=== PATIENT | male | born 1980 | race Two or more races ===

== ENCOUNTER 2018-11-11 06:58 | Inpatient (IN) | payer OTHER ==
[~2018-11-11] VITALS: Ht 170.2 cm; Wt 70.8 kg
[2018-11-11] MEDS ORDERED: LORAZEPAM INJ 2 MG/ML VIAL ONE ×3 (07:05→10:19)
[2018-11-11] MEDS ORDERED: LEVETIRACETAM (500MG) 500 MG/5 ML VIAL IV ONE (07:15)
--- NOTE | 2018-11-11 07:24 | NUR ---
BIBA FOR S/P SEZURE . UNSURE IF HE HIT HIS HEAD SOMEWHERE. PLACED ON A MONITOR ,VSS. RAC 20G IV LINE INSERTED AND BLOOD WAS DRAWN AND SENT TO THE LAB. MEDICATED ORDERED. WILL CONT TO MONITO .
[2018-11-11 07:26] LABS: BASOPHILS # (AUTO) 0.1 /CMM (0.0-0.2); BASOPHILS % (AUTO) 0.5 % (0.0-2.0); EOSINOPHILS % (AUTO) 0.7 % (0.0-6.0); HEMATOCRIT 47 % (39-51); HEMOGLOBIN 15.5 g/dL (13.5-17.5); LYMPHOCYTES # (AUTO) 2.8 /CMM (0.8-4.8); LYMPHOCYTES % (AUTO) 23.5 % (20.0-44.0); MEAN CORPUSCULAR HGB CONC 33 g/dl (31.0-36.0); MEAN CORPUSCULAR VOLUME 83 fL (80-96); MONOCYTES # (AUTO) 0.7 /CMM (0.1-1.30); MONOCYTES % (AUTO) 5.7 % (2.0-12.0); NEUTROPHILS # (AUTO) 8.4 /CMM (1.8-8.9); NEUTROPHILS % (AUTO) 69.6 % (43.0-81.0); PLATELET COUNT (AUTO) 230 /CMM (150-450); RED BLOOD CELL COUNT(AUTO) 5.67 MIL/uL (4.5-6.0)
[2018-11-11] MEDS ORDERED: IV NS 0.9% 1,000 ML BAG IV ONE ×2 (07:30→10:30)
[2018-11-11] MEDS ORDERED: LORAZEPAM INJ 2 MG/ML VIAL IVP ONE (07:30)
[2018-11-11] MEDS ORDERED: LEVETIRACETAM (500MG) 500 MG in IV NS 0.9% 100 ML IV ONE (07:30)
--- NOTE | 2018-11-11 07:35 | NUR ---
PT TO CT
[2018-11-11 07:36] LABS: CALCIUM, SERUM 9.4 mg/dL (8.5-10.1); CREATININE 0.9 mg/dL (0.6-1.3); POTASSIUM 3.8 mmol/L (3.5-5.1)
[2018-11-11 07:43] LABS: ALBUMIN 4.1 g/dL (3.4-5.0); BILIRUBIN,DIRECT 0.1 mg/dL (0.0-0.2); BILIRUBIN,TOTAL 0.7 mg/dL (0.2-1.0); TOTAL PROTEIN, SERUM 8.6 g/dL (6.4-8.2)
--- NOTE | 2018-11-11 07:52 | NUR ---
PT BACK FRO MCT
[2018-11-11] MEDS ORDERED: ONDANSETRON HCL/PF 4 MG/2 ML VIAL ONE (08:51)
--- NOTE | 2018-11-11 08:56 | NUR ---
PT APPEARS ANXIOUS, C/O NAUSEA. DR WILL AWARE. MEDICATED ORDERED.
[2018-11-11] MEDS ORDERED: ONDANSETRON HCL/PF - ER 4 MG/2 ML VIAL IV ONE (09:00)
[2018-11-11] MEDS ORDERED: LORAZEPAM INJ 2 MG/ML VIAL IV ONE ×2 (09:00→10:30)
--- NOTE | 2018-11-11 10:33 | NUR ---
PANEL PAGED. AWAITING CALL BACK FROM Jaylen PRIETO NP.
[2018-11-11] MEDS ORDERED: LEVE250T2 PO (10:44)
--- NOTE | 2018-11-11 10:58 | NUR ---
REPORT GIVEN TO SAJI SOMMERS. AWAITING TRANSFER.
[2018-11-11] MEDS ORDERED: MAGNESIUM HYDROXIDE 30 ML UDC PO PRN (11:30)
[2018-11-11] MEDS ORDERED: LORAZEPAM INJ 2 MG/ML VIAL IV PRN (11:30)
[2018-11-11] MEDS ORDERED: ZOLPIDEM TARTRATE 5 MG TABLET PO PRN (11:30)
[2018-11-11] MEDS ORDERED: ACETAMINOPHEN 325 MG TABLET PO PRN (11:30)
[2018-11-11] MEDS ORDERED: MAG HYDROX/AL HYDROX/SIMETH 30 ML UDC PO PRN (11:30)
--- NOTE | 2018-11-11 11:35 | NUR ---
ROLLER OPERATOR ADMITTING NOTE RECEIVED PATIENT FROM [facility] ER. REPORT RECEIVED FROM MATTHIEU YING. PATIENTA/O X 4, NO SOB OR ACUTE DISTRESS NOTED, ON 2L 02 VIA MS. HX OF SIEZURE AND EPILEPSY. PATIENT AMBULATORY, SKIN INTACT. SIEZURE PRECAUTIONS IN PLACE, BED SIDE RAILS PADDED. SUCTION CANISTER PREPARED. RFA IV INTACT AND PATENT. O.9 % NS INFUSING @ 75 ML/HR. PATIENT RESTING COMFORTABLY. SAFETY MEASURES IN PLACE. BED IN LOW LOCKED POSITION, CALL LIGHT WITHIN REACH.
[2018-11-11] MEDS: MULTIVITAMINS,THERAGRAN 1 UDTAB TABLET PO SCH (12:10)
[2018-11-11] MEDS: FOLIC ACID 1 MG TABLET PO SCH (12:10)
[2018-11-11] MEDS: THIAMINE HCL 100 MG TABLET PO SCH (12:10)
[2018-11-11] MEDS: ONDANSETRON HCL/PF 4 MG/2 ML VIAL IVP PRN ×2 (15:46→22:44)
[2018-11-11] MEDS: CHLORDIAZEPOXIDE HCL 25 MG CAPSULE PO SCH (18:09)
[2018-11-11] MEDS: PANTOPRAZOLE 40 MG TABLET.DR PO SCH (18:09)
[2018-11-11] MEDS: LEVETIRACETAM (250 MG) 250 MG TABLET PO SCH (18:09)
--- NOTE | 2018-11-11 19:25 | NUR ---
ANTHONY RN OPENING NOTES RECEIVED BEDSIDE REPORT FROM MATTHIEU HENSON. PATIENT IN BED, A/OX3, ABLE TO MAKE NEEDS KNOWN. NO SEIZURE ACTIVITY NOTED. ON OXYGEN 2L VIA NC, TOLERATING WELL, SATURATION 97%. RESPIRATION EVEN AND UNLABORED. IV ACCESS ON RIGHT FA 20G, INTACT AND PATENT, FLUSHING WELL, FLUIDS RUNNING ORDERED, NO INFILTRATION NOTED. HOB ELEVATED. SAFETY MEASURES IN PLACE. SIDE RAILS UP X2 AND PADDED. BED LOCKED AND IN LOWEST POSITION. CALL LIGHT WITHIN REACH. WILL CONT TO MONITOR CLOSELY.
[2018-11-11 20:00] VITALS: BP 137/76
--- NOTE | 2018-11-11 20:09 | NUR ---
SHOULDER BONER CLOSING NOTE PATIENT IN BED RESTING. A/O X 4, NO SOB OR ACUTE DISTRESS NOTED, ON ROOM AIR WITH ORDER FOR 2L 02 VIA NC IF 02 SAT <92%. CURRENT 02 SAT 99%. PATIENT AMBULATORY, SKIN INTACT. SIEZURE PRECAUTIONS IN PLACE, BED SIDE RAILS PADDED. SUCTION CANISTER PREPARED. RFA IV INTACT AND PATENT. O.9 % NS INFUSING @ 75 ML/HR. SAFETY MEASURES IN PLACE. BED IN LOW LOCKED POSITION, CALL LIGHT WITHIN REACH.CARE ENDORSED TO MINE CAPTAIN RN.
[2018-11-12] VITALS: BP 110/83
[2018-11-12 01:21] LABS: APPEARANCE,URINE CLOUDY (CLEAR); BILIRUBIN,URINE NEGATIVE (NEGATIVE); BLOOD, URINE 2+ Ery/uL (NEGATIVE); COLOR,URINE YELLOW (YELLOW); KETONES,URINE NEGATIVE (NEGATIVE); LEUKOCYTE ESTERASE ,URINE 1+ (NEGATIVE); NITRITE, URINE NEGATIVE (NEGATIVE); PH,URINE 8.5 (5.0-8.0); PROTEIN,URINE 2+ mg/dl (NEGATIVE); UGLUCOSE NEGATIVE (NEGATIVE); UROBILINOGEN,URINE 0.2 EU/dL (0.2)
[2018-11-12] MEDS: IV NS 0.9% 1,000 ML IV PRN ×2 (02:56→17:21)
--- NOTE | 2018-11-12 03:00 | NUR ---
ANTHONY RN NOTES PATIENT COMPLAINING OF NEEDING TO URINATE BUT HAVING DIFFICULTY D/T BURNING PAIN 8/10 WHILE URINATING. WILL CHECK WITH BLADDER SCANNER IF PATIENT RETAINING FLUIDS. WILL CONT TO MONITOR CLOSELY.
[2018-11-12 03:30] LABS: BACTERIA,URINE Few /HPF (None Seen); RBC,URINE 21-50 /HPF (0-2); SQUAMOUS EPITHELIAL CELL,UR Rare /HPF (None Seen); WBC,URINE TOO NUMEROUS TO COUN /HPF (0-3)
[2018-11-12 04:00] VITALS: BP 110/82
--- NOTE | 2018-11-12 04:00 | NUR ---
ANTHONY RN NOTES PATIENT REFUSING BLADDER SCAN RIGHT NOW. STATED "I PEED A LITTLE ALREADY, PLEASE DO IT LATER" WILL ENDORSE TO AM RN.
[2018-11-12 06:12] LABS: ALBUMIN 3.4 g/dL (3.4-5.0); BILIRUBIN,TOTAL 1.4 mg/dL (0.2-1.0); CALCIUM, SERUM 8.8 mg/dL (8.5-10.1); CREATININE 0.7 mg/dL (0.6-1.3); MAGNESIUM 1.5 mg/dL (1.8-2.4); PHOSPHORUS 3.9 mg/dL (2.5-4.9); POTASSIUM 3.8 mmol/L (3.5-5.1); TOTAL PROTEIN, SERUM 7.4 g/dL (6.4-8.2)
[2018-11-12 06:19] LABS: THYROID STIMULATING HORMONE 3.375 uIU/mL (0.358-3.74)
[2018-11-12 06:21] LABS: BASOPHILS % (AUTO) 0.5 % (0.0-2.0); EOSINOPHILS % (AUTO) 3.2 % (0.0-6.0); HEMATOCRIT 42 % (39-51); HEMOGLOBIN 13.6 g/dL (13.5-17.5); LYMPHOCYTES # (AUTO) 1.3 /CMM (0.8-4.8); LYMPHOCYTES % (AUTO) 21.3 % (20.0-44.0); MEAN CORPUSCULAR HGB CONC 33 g/dl (31.0-36.0); MEAN CORPUSCULAR VOLUME 84 fL (80-96); MONOCYTES # (AUTO) 0.5 /CMM (0.1-1.30); MONOCYTES % (AUTO) 8.5 % (2.0-12.0); NEUTROPHILS % (AUTO) 66.5 % (43.0-81.0); PLATELET COUNT (AUTO) 151 /CMM (150-450); RED BLOOD CELL COUNT(AUTO) 4.97 MIL/uL (4.5-6.0); WHITE BLOOD COUNT (AUTO) 6.1 K/uL (4.3-11.0)
--- NOTE | 2018-11-12 07:11 | NUR ---
ANTHONY RN CLOSING NOTES PATIENT IN BED, A/OX3, ABLE TO MAKE NEEDS KNOWN. NO SEIZURE ACTIVITY AND ACUTE CHANGES NOTED THROUGHOUT SHIFT. ON RA, TOLERATING WELL, RESPIRATION EVEN AND UNLABORED. IV ACCESS ON RIGHT FA 20G, INTACT AND PATENT, FLUSHING WELL, FLUIDS RUNNING ORDERED, NO INFILTRATION NOTED. ALL MD ORDERS ATTENDED. ALL NEEDS ANTICIPATED AND MET. HOB ELEVATED. SAFETY MEASURES IN PLACE. SIDE RAILS UP X2 AND PADDED. BED LOCKED AND IN LOWEST POSITION. CALL LIGHT WITHIN REACH. ENDORSED TO AM RN FOR DONITA.
--- NOTE | 2018-11-12 07:35 | NUR ---
ANTHONY RN OPENING NOTES RECEIVED PATIENT IN BED SLEEPING COMFORTABLY. EASILY AROUSABLE. PATIENT IS ALERT AND ORIENTED X3. ABLE TO MAKE NEEDS KNOWN. NO PAIN OR ACUTE DISTRESS AT THIS TIME. RESPIRATION EVEN AND UNLABORED. SKIN IS DRY WARM TO TOUCH. NO SEIZURE ACTIVITY NOTED. PATIENT ON O2 THERAPY @ 2LPM VIA NC. TOLERATING WELL, SATURATION 98%. PATIENT IS NOTED WITH IV ACCESS ON RIGHT FA 20G, INTACT AND PATENT, FLUSHING WELL, FLUIDS RUNNING ORDERED, NO INFILTRATION OR INFECTION NOTED AT THIS TIME. ALL NEEDS ANTICIPATED. KEPT CLEAN AND DRY. CALL LIGHT WITHIN REACHED. BED LOCKED AND IN LOWEST POSITION. SAFETY MEASURES IN PLACE. SIDE RAILS UP X2 AND PADDED. CALL LIGHT WITHIN REACH. WILL CONTINUE TO MONITOR CLOSELY.
[2018-11-12] MEDS: ONDANSETRON HCL/PF 4 MG/2 ML VIAL IVP PRN (07:53)
[2018-11-12 08:00] VITALS: BP 110/72
[2018-11-12] MEDS ORDERED: PANTOPRAZOLE 40 MG VIAL IV SCH (09:00)
[2018-11-12] MEDS: LEVETIRACETAM (250 MG) 250 MG TABLET PO SCH ×2 (09:35→17:22)
[2018-11-12] MEDS: CHLORDIAZEPOXIDE HCL 25 MG CAPSULE PO SCH ×2 (09:36→17:29)
[2018-11-12] MEDS: THIAMINE HCL 100 MG TABLET PO SCH (09:36)
[2018-11-12] MEDS: MULTIVITAMINS,THERAGRAN 1 UDTAB TABLET PO SCH (09:36)
[2018-11-12] MEDS: PANTOPRAZOLE 40 MG TABLET.DR PO SCH ×2 (09:36→17:21)
[2018-11-12] MEDS: FOLIC ACID 1 MG TABLET PO SCH (09:36)
[2018-11-12] MEDS: Magnesium 1GM/D5W 100ML PREMIX 100 ML IV SCH ×2 (10:08→11:13)
--- NOTE | 2018-11-12 11:31 | NUR ---
RN NOTES ENDORSED THE CARE OF PATIENT TO MATTHIEU ARCINIEGA. PATIENT REMAINS IN STABLE CONDITION. NO PAIN OR ACUTE DISTRESS AT THIS TIME. PROVIDED COMFORT AND SAFETY. PATIENT WAS ABLE TO TOLERATE MEALS AND MEDS WELL. ALL NEEDS ANTICIPATED. KEPT CLEAN AND DRY. CALL LIGHT WITHIN REACHED. WILL CONTINUE TO MONITOR.
[2018-11-12 12:00] VITALS: BP 110/70
[2018-11-12] MEDS ORDERED: CEFTRIAXONE 1 G in IV D5W 50 ML IV SCH (12:00)
--- NOTE | 2018-11-12 12:00 | NUR ---
patient resting in bed- no complaints- no s/s of distress - safety precautions in place -vitals stable-will continue to monitor report and record
--- NOTE | 2018-11-12 12:07 | NUR ---
Social service consult requested by ALBA Spivey for alcohol abuse. Pt. is a 37 year old male who was admitted to [facility] for seizures. SW met with pt. bedside. Pt. is alert and oriented x 4. Pt's appears disheveled. Pt. states he lives alone at [address] [place] Pt. at times also lives at his girlfriend Amber's house located on [address]. Pt. was at his girlfriend's house when he had the seizure. Pt's girlfriend in currently in [place] and is returning on November 18. Pt. is an alcoholic and stated he went on a binge drinking vodka after his girlfriend left for [place] seven days ago. Pt. states he has been drinking alcohol for the past 20 years. Pt. drinks 1/2 to 1 pint of vodka daily. Pt. has not been an alcohol rehabilitation program in the past. He is currently only attending AA meetings in the [place]. SW strongly encouraged pt. to attend an alcohol rehabilitation program. Pt. agreed. Pt. lost his job due to drinking at the job. Pt. appeared teary eyed and remorseful and stated, " I have to get into a program or my girlfriend will leave me." SW provided active listening and emotional support to the pt. STEPHANIE gave pt. the following alcohol rehab referrals: [facility] Substance Abuse Self-helpline ([facility]) Substance Abuse Contact number , [facility] [address]. [place] [phone] ;[facility], [address] [address] [place] [address]. Intake at 8:00 am but this does not mean acceptance ; [facility] ([facility] based)[address] [address] [place] [address] (Six months program and need to work for 8 hrs per day while in treatment); [facility] (No insurance required)[address] [place], [place] [id number] ;[facility] [address] [place] [phone] Closed on Thursday Open Thursday through Thursday 9 am -6 pm. Thursday 10am � 5 pm and [facility] [phone] , [address] [place] [address]. No other social service needs are requested at this time. SW is available, if needed.
--- NOTE | 2018-11-12 15:47 | NUR ---
patient resting in bed- no complaints- no s/s of distress - patient has ambulated in the hallway, taken a shower, tolerating diet - remains on piv remains a/o x4 - not auditory or visual hallucinations no agitation safety precautions in place -vitals stable-will continue to monitor report and record
[2018-11-12 16:00] VITALS: BP 119/80
--- NOTE | 2018-11-12 18:10 | NUR ---
overall patient has had a very restful day- no complaints of pain- showered, walked- had family come into see him- he admits he needs assistance to stop drinking - tolerating diet- no hallucinations, very mild temperament - safety precautions in place- vitals stable -will provide bedside sbar report to pm rn
--- NOTE | 2018-11-12 19:15 | NUR ---
RN OPEN NOTES RECEIVED PATIENT AWAKE IN BED. A/OX4. NO SIGNS OF DISTRESS OR DISCOMFORT. BREATHING EVEN AND UNLABORED. IV ACCESS IN RFA WITH NS INFUSING, PATENT AND INTACT, NO SIGNS OF REDNESS OR INFILTRATION. BED IN LOW LOCKED POSITION WITH SIDE RAILS X2. CALL LIGHT WITHIN REACH. WILL CONTINUE TO MONITOR.
[2018-11-12 20:00] VITALS: BP 114/92
[2018-11-13] MEDS: IV NS 0.9% 1,000 ML IV PRN (03:50)
[2018-11-13 04:00] VITALS: BP 110/75
[2018-11-13 07:02] LABS: BASOPHILS % (AUTO) 0.4 % (0.0-2.0); EOSINOPHILS % (AUTO) 4.3 % (0.0-6.0); HEMATOCRIT 42 % (39-51); HEMOGLOBIN 13.7 g/dL (13.5-17.5); LYMPHOCYTES # (AUTO) 0.9 /CMM (0.8-4.8); LYMPHOCYTES % (AUTO) 12.2 % (20.0-44.0); MEAN CORPUSCULAR HGB CONC 32 g/dl (31.0-36.0); MEAN CORPUSCULAR VOLUME 84 fL (80-96); MONOCYTES # (AUTO) 0.4 /CMM (0.1-1.30); MONOCYTES % (AUTO) 5.5 % (2.0-12.0); NEUTROPHILS # (AUTO) 5.9 /CMM (1.8-8.9); NEUTROPHILS % (AUTO) 77.6 % (43.0-81.0); PLATELET COUNT (AUTO) 149 /CMM (150-450); RED BLOOD CELL COUNT(AUTO) 5.04 MIL/uL (4.5-6.0); WHITE BLOOD COUNT (AUTO) 7.7 K/uL (4.3-11.0)
[2018-11-13 07:22] LABS: CALCIUM, SERUM 8.6 mg/dL (8.5-10.1); CREATININE 0.7 mg/dL (0.6-1.3); MAGNESIUM 1.9 mg/dL (1.8-2.4); POTASSIUM 3.4 mmol/L (3.5-5.1)
--- NOTE | 2018-11-13 07:38 | NUR ---
RN CLOSING NOTES PATIENT AWAKE IN BED. A/OX4. NO SIGNS OF DISTRESS OR DISCOMFORT. BREATHING EVEN AND UNLABORED. IV ACCESS IN RFA WITH NS INFUSING, PATENT AND INTACT, NO SIGNS OF REDNESS OR INFILTRATION. ALL NEEDS MET. NO SIGNIFICANT CHANGES THROUGH THE NIGHT. BED IN LOW LOCKED POSITION WITH SIDE RAILS X2. CALL LIGHT WITHIN REACH. ENDORSED TO AM SHIFT FOR DONITA.
--- NOTE | 2018-11-13 07:49 | NUR ---
MS RN OPENING NOTES RECEIVED PATIENT AWAKE IN BED. A/OX4. NO SOB OR ACUTE DISTRESSS NOTED. BREATHING EVEN AND UNLABORED. RFA IV INTACT AND PATENT INFUSING NS@100ML/HR. NO SIGNIFICANT CHANGES REPORTED THROUGH THE NIGHT. BED IN LOW LOCKED POSITION WITH SIDE RAILS X2. CALL LIGHT WITHIN REACH. WILL CONTINUE TO MONITOR.
[2018-11-13 08:00] VITALS: BP 98/70
[2018-11-13] MEDS: PANTOPRAZOLE 40 MG TABLET.DR PO SCH (08:45)
[2018-11-13] MEDS: FOLIC ACID 1 MG TABLET PO SCH (08:45)
[2018-11-13] MEDS: LEVETIRACETAM (250 MG) 250 MG TABLET PO SCH (08:45)
[2018-11-13] MEDS: THIAMINE HCL 100 MG TABLET PO SCH (08:45)
[2018-11-13] MEDS: MULTIVITAMINS,THERAGRAN 1 UDTAB TABLET PO SCH (08:45)
[2018-11-13] MEDS: CHLORDIAZEPOXIDE HCL 25 MG CAPSULE PO SCH (08:52)
[2018-11-13] MEDS ORDERED: CEPH-570 PO (10:11)
[2018-11-13] MEDS ORDERED: FOLI1TAB16 PO (10:11)
[2018-11-13] MEDS ORDERED: MULT1TAB73 PO (10:11)
[2018-11-13] MEDS ORDERED: LORA-259 PO (10:11)
[2018-11-13] MEDS ORDERED: THIA100T68 PO (10:11)
--- NOTE | 2018-11-13 11:17 | NUR ---
MS RN NOTE PATIENT DISCHARGED PER MD TO HOME W/ . PATIENT A/O X 4, NO SOB OR ACUTE DISTRESS NOTED. PATIENT AMBULATORY AND WALKED TO DOOR BY MATTHIEU HENSON. D/C EDUCATION AND MEDICATIONS REVIEWED WITH PATIENT. RFA IV REMOVED AND DRESSED. NO TELE METER ON PATIENT. BELONGINGS LIST COMPLETED. NO PICTURES NEEDED. PATIENT D/C W/O INCIDENT.
== END 2018-11-13 11:17 | disposition home or self-care (01) | DRG 53 ==
LOC: ER 07:01 → TELE-TD 10:58 → MEDSG1 11-12 09:50
PROVIDERS: ADMIT Nurse Practitioner Acute Care; ATTEND Nurse Practitioner Acute Care
DX: G40.509 Epileptic seizures related to external causes, not intractable, without status epilepticus (principal); E87.2 Acidosis; E83.42 Hypomagnesemia; F10.239 Alcohol dependence with withdrawal, unspecified; F10.229 Alcohol dependence with intoxication, unspecified; D72.829 Elevated white blood cell count, unspecified; E86.0 Dehydration; Y90.7 Blood alcohol level of 200-239 mg/100 ml; R73.9 Hyperglycemia, unspecified; Z79.899 Other long term (current) drug therapy; N39.0 Urinary tract infection, site not specified
CPT/HCPCS: 36415; 70450-TC; 80048-TC; 80053-TC; 80061-TC; 80076-TC; 81000-TC; 82962-TC; 83735-TC; 84100-TC; 84443-TC; 85025-TC; 87081-TC; 87086-TC; G0378; G0480; J0696; J1953; J2060; J2405; J3475; J7030; J7060

== ENCOUNTER 2019-01-14 20:36 | Emergency (ER) | payer OTHER ==
[~2019-01-14] VITALS: Ht 170.2 cm; Wt 74.8 kg
[~2019-01-14 20:36] MED LIST: CEPH-570 PO; FOLI1TAB16 PO; LEVE250T2 PO; LORA-259 PO; MULT1TAB73 PO; THIA100T68 PO
--- NOTE | 2019-01-14 20:40 | NUR ---
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 TAKES KEPPRA FOR HIS SEIZURES" PT IS POST ICTAL, PT VERBALLY RESPOSIVE, AROUSABLE, PT ON MONITOR, VSS, NAD NOTED, PENDING MD CHEN
[2019-01-14] MEDS ORDERED: IV NS 0.9% 1,000 ML BAG IV ONE (21:30)
[2019-01-14] MEDS ORDERED: LEVETIRACETAM (500MG) 1,000 MG in IV NS 0.9% 100 ML IV ONE (21:30)
[2019-01-14] MEDS ORDERED: LEVETIRACETAM (500MG) 500 MG/5 ML VIAL IV ONE (21:32)
[2019-01-14 21:33] LABS: BASOPHILS % (AUTO) 0.5 % (0.0-2.0); EOSINOPHILS % (AUTO) 0.1 % (0.0-6.0); HEMATOCRIT 44 % (39-51); HEMOGLOBIN 14.4 g/dL (13.5-17.5); LYMPHOCYTES # (AUTO) 0.6 /CMM (0.8-4.8); LYMPHOCYTES % (AUTO) 9.6 % (20.0-44.0); MEAN CORPUSCULAR HGB CONC 33 g/dl (31.0-36.0); MEAN CORPUSCULAR VOLUME 84 fL (80-96); MONOCYTES # (AUTO) 0.3 /CMM (0.1-1.30); NEUTROPHILS # (AUTO) 5.4 /CMM (1.8-8.9); NEUTROPHILS % (AUTO) 84.8 % (43.0-81.0); PLATELET COUNT (AUTO) 152 /CMM (150-450); RED BLOOD CELL COUNT(AUTO) 5.23 MIL/uL (4.5-6.0); WHITE BLOOD COUNT (AUTO) 6.3 K/uL (4.3-11.0)
[2019-01-14 21:36] LABS: CREATININE 0.8 mg/dL (0.6-1.3); POTASSIUM 3.3 mmol/L (3.5-5.1)
[2019-01-14] MEDS ORDERED: POTASSIUM CHLORIDE 20 MEQ TAB.PRT.SR PO ONE ×2 (22:30→22:33)
[2019-01-14 23:00] VITALS: BP 122/70
--- NOTE | 2019-01-14 23:17 | NUR ---
Patient discharged to home in stable condition. Written and verbal after care instructions given. Patient verbalizes understanding of instruction. IV removed. Catheter intact and site benign. Pressure and 4x4 applied to site. No bleeding noted.
== END 2019-01-14 23:19 ==
LOC: ER 20:43
DX: S50.11XA Contusion of right forearm, initial encounter (principal); G40.909 Epilepsy, unspecified, not intractable, without status epilepticus; F10.129 Alcohol abuse with intoxication, unspecified; R07.89 Other chest pain; F12.10 Cannabis abuse, uncomplicated; R00.0 Tachycardia, unspecified; R51 Headache; Y90.8 Blood alcohol level of 240 mg/100 ml or more; Z60.2 Problems related to living alone; X58.XXXA Exposure to other specified factors, initial encounter; Y93.89 Activity, other specified; Y92.89 Other specified places as the place of occurrence of the external cause; Y99.8 Other external cause status
CPT/HCPCS: 36415; 70450; 71045; 73090; 80048; 80307; 83880; 85025; 85378; 93005; 96365; 99284; J1953; J7030 ×3; G0480

== ENCOUNTER 2019-01-24 17:49 | Emergency (ER) | payer OTHER ==
[~2019-01-24] VITALS: Ht 167.6 cm; Wt 61.2 kg
--- NOTE | 2019-01-24 18:00 | NUR ---
ETOH WITHDRAWAL. PATIENT BIB BROTHER, PER BROTHER PATIENT HAD SEIZURE IN THE CAR. PATIENT A/OX1-2 CONFUSED, CRYING, AGITATED, BREATHING EVEN AND UNLABORED, PATIENT PLACED ON THE MONITOR, TACHYCARDIC. DENIES CHEST PAIN OR DISCOMFORT.
[2019-01-24] MEDS ORDERED: LORAZEPAM INJ 2 MG/ML VIAL ONE (18:10)
--- NOTE | 2019-01-24 18:15 | NUR ---
DR. WOLF AT BEDSIDE FOR EVAL.
[2019-01-24] MEDS: LORAZEPAM INJ 2 MG/ML VIAL IV ONE (18:23)
[2019-01-24 18:25] LABS: BASOPHILS # (AUTO) 0.1 /CMM (0.0-0.2); EOSINOPHILS % (AUTO) 0.4 % (0.0-6.0); HEMATOCRIT 45 % (39-51); HEMOGLOBIN 14.9 g/dL (13.5-17.5); LYMPHOCYTES # (AUTO) 0.9 /CMM (0.8-4.8); LYMPHOCYTES % (AUTO) 17.5 % (20.0-44.0); MEAN CORPUSCULAR HGB CONC 33 g/dl (31.0-36.0); MEAN CORPUSCULAR VOLUME 85 fL (80-96); MONOCYTES # (AUTO) 0.8 /CMM (0.1-1.30); MONOCYTES % (AUTO) 15.1 % (2.0-12.0); NEUTROPHILS # (AUTO) 3.3 /CMM (1.8-8.9); PLATELET COUNT (AUTO) 107 /CMM (150-450); RED BLOOD CELL COUNT(AUTO) 5.36 MIL/uL (4.5-6.0)
[2019-01-24] MEDS: IV NS 0.9% 1,000 ML BAG IV ONE (18:33)
[2019-01-24] MEDS: LEVETIRACETAM (500MG) 1,000 MG in IV NS 0.9% 100 ML IV SCH (18:34)
[2019-01-24 18:46] LABS: ALBUMIN 4.9 g/dL (3.4-5.0); BILIRUBIN,DIRECT 0.4 mg/dL (0.0-0.2); BILIRUBIN,TOTAL 1.1 mg/dL (0.2-1.0); CALCIUM, SERUM 10.2 mg/dL (8.5-10.1); CREATININE 0.9 mg/dL (0.6-1.3); POTASSIUM 3.6 mmol/L (3.5-5.1)
[2019-01-24 19:00] LABS: LYMPHOCYTES % (MANUAL) 16 % (16-48); MONOCYTES % (MANUAL) 15 % (0-11.0); NEUTROPHILS % (MANUAL) 69 (42-76)
[2019-01-24] MEDS: Thiamine 100 MG in IV D5W 50 ML IV SCH (19:02)
--- NOTE | 2019-01-24 19:18 | NUR ---
ENDORSED TO ANNY FOR DONITA. PATIENT ASLEEP AND RESTING. KEPT COMFORTABLE. FAMILY AT BEDSIDE.
[2019-01-24 19:21] LABS: THYROID STIMULATING HORMONE 1.764 uIU/mL (0.358-3.74)
--- NOTE | 2019-01-24 19:27 | NUR ---
PT IN BED SLEEPING BREATHING EVENLY. NO DISTRESS NOTED,. VSS .WILL CONT TO MONITOR ,
--- NOTE | 2019-01-24 19:55 | NUR ---
REPORT GIVEN TO STEFFANY SOMMERS.
--- NOTE | 2019-01-24 21:07 | NUR ---
PT AAOX4. AMBULATORY WITH STEADY GAIT. CALLED GIANCARLO (BROTHER) [phone] TO COME CHECKROOM CHIEF PT, EN ROUTE TO HOSPITAL.
--- NOTE | 2019-01-24 21:21 | NUR ---
IV removed. Catheter intact and site benign. Pressure and 4x4 applied to site. No bleeding noted.Patient discharged to home in stable condition. Written and verbal after care instructions given. Patient verbalizes understanding of instruction. pt was picked up by family members and walked out w/ an steady gait.
[2019-01-24 21:22] VITALS: BP 135/85
== END 2019-01-24 21:22 | disposition home or self-care (01) ==
LOC: ER 17:49
DX: G40.909 Epilepsy, unspecified, not intractable, without status epilepticus (principal); F10.10 Alcohol abuse, uncomplicated; Z60.2 Problems related to living alone; Z79.899 Other long term (current) drug therapy; Y90.6 Blood alcohol level of 120-199 mg/100 ml
CPT/HCPCS: 36415; 80048; 80076; 80305; 80307; 82140; 84443; 85025; 96365; 96368; 96375; 99283; J1953; J2060; J3411; J7030 ×2; J7060; G0480